=== PATIENT | female | born 1990 | race Two or more races ===

== ENCOUNTER 2024-05-05 09:19 | Outpatient (RCR) | payer MEDICARE, MEDICAID, SELFPAY | END 2024-05-29 23:59 | disposition home or self-care (01) | LOC: SCTC 09:19 | PROVIDERS: PCP Family Medicine; Referring Provider Radiology Therapeutic Radiology; Visit Provider Radiology Therapeutic Radiology | DX: C18.9 Malignant neoplasm of colon, unspecified (principal); Z92.21 Personal history of antineoplastic chemotherapy; Z92.3 Personal history of irradiation | CPT/HCPCS: 99213; G0463 ==

== ENCOUNTER → 2024-05-11 | Outpatient (CLI) | payer MEDICARE, MEDICAID, SELFPAY ==
[2024-05-08 12:39] LABS: HCG Qualitative,Urine Negative
--- NOTE | 2024-05-11 13:52 | XR_ITS ---
Examination: CT chest with intravenous contrast CT abdomen with intravenous contrast CT pelvis with intravenous contrast CT chest, without intravenous contrast. CT abdomen, without intravenous contrast. CT pelvis, without intravenous contrast. 2-D sagittal and coronal reconstructions. 3-D reconstructions. Date and time of exam:May 11, 2024 1516 hours INDICATIONS: Diagnosis malignant neoplasm ascending colon, restaging COMPARISON: The chest abdomen pelvis 01/15/2024 CTDI vol (mgy) 47.1 DLP (MGycm)4208 Technique: Multiple CT images, 3.0 mm slice thickness, obtained chest, abdomen, pelvis, with the high-resolution 64 slice scanner.., Pre and post 60 cc Isovue-370 Sagittal and coronal 2-D reconstructions are obtained. 3-D reconstructions Low dose protocols were performed. One or more of the following dose reduction techniques were used; automated exposure control, adjustment of the mA and/or KV according to patient size, use of iterative reconstruction technique. Findings: Enlarged right thyroid lobe 14 mm Isthmus thyroid nodule 8mm nodule left breast image 76, 6 mm nodule right breast image 76 No thoracic aortic aneurysm dilatation Pulmonary artery segments are not enlarged No paratracheal tracheobronchial or bronchopulmonary adenopathy Stable 4 mm pulmonary nodule right lower lobe Stable 3 mm pulmonary nodule right lower lobe No new pulmonary nodules No interval pneumonia or pulmonary edema or pleural disease Diffuse fatty infiltration throughout the liver Diffuse fatty infiltration throughout the liver, no focal liver or splenic lesions No gallstones Upper abdominal wall 10 cm hernia defect containing transverse colon, no incarcerated bowel Aorta normal size Stable 12 mm left lateral periaortic lymph node No hydronephrosis 20 mm fat-containing umbilical hernia Left lateral abdominal wall hernia defect containing colon but no incarcerated bowel, this defect measuring 4.5 cm Right lateral lower abdominal wall pelvic hernia defect 0.5 cm containing small bowel, no incarcerated bowel Left lateral pelvic wall hernia defect, 5.7 cm, containing colon but no incarcerated bowel No pelvic lymphadenopathy No pelvic mass Contracted urinary bladder Moderate osteopenia IMPRESSION: 14 mm isthmus thyroid nodule 8mm nodule left breast, 6 mm nodule right breast, recommend bilateral breast sonography follow-up Stable right lung pulmonary nodules, no new pulmonary nodules Multiple hernia defects as above containing bowel but no incarcerated bowel Again noted 12 mm left lateral periaortic lymph node, consider PET CT scan follow-up
== END | disposition home or self-care (01) ==
PROVIDERS: PCP Family Medicine; Referring Provider Internal Medicine Hematology & Oncology; Visit Provider Internal Medicine Hematology & Oncology
DX: E04.1 Nontoxic single thyroid nodule (principal); R91.8 Other nonspecific abnormal finding of lung field; K46.9 Unspecified abdominal hernia without obstruction or gangrene; C18.2 Malignant neoplasm of ascending colon; Z32.00 Encounter for pregnancy test, result unknown
CPT/HCPCS: 71270; 74178; 81025; A4649; Q9967

== ENCOUNTER → 2024-05-29 | Outpatient (CLI) | payer MEDICARE, MEDICAID, SELFPAY ==
--- NOTE | 2024-05-29 13:30 | XR_ITS ---
Examination: Breast ultrasound complete, bilateral Date and time of exam: May 29, 2024 1339 hours INDICATIONS: Left breast sonogram June 27, 2023 2:00 nodule 12 mm 10:00 nodule 13 mm Technique: Real-time grayscale ultrasonographic imaging bilateral breasts, including all 4 quadrants as well as nipple retroareolar and axillary regions. Findings: Sonographic images right breast No cystic or solid mass Sonographic images left breast 2:00 oval mass circumscribed 12 x 6 x 11 mm 10:00 oval mass circumscribed 14 x 6 x 10 mm IMPRESSION: BI-RADS Category 2: Benign findings
== END | disposition home or self-care (01) ==
LOC: CDIM 13:09
PROVIDERS: PCP Family Medicine; Referring Provider Internal Medicine Hematology & Oncology; Visit Provider Internal Medicine Hematology & Oncology
DX: N63.22 Unspecified lump in the left breast, upper inner quadrant (principal); N63.21 Unspecified lump in the left breast, upper outer quadrant; C18.2 Malignant neoplasm of ascending colon
CPT/HCPCS: 76641

== ENCOUNTER 2024-07-01 15:38 | Outpatient (RCR) | payer MEDICARE, MEDICAID, SELFPAY ==
[2024-06-30 16:36] LABS: Basophils # (Auto) 0.1 Thou/mm3 (0.0-0.2); Basophils % (Auto) 1 % (0-2.5); Eosinophils # (Auto) 0.5 Thou/mm3 (0.0-0.5); Eosinophils % (Auto) 4 % (0-10); Hematocrit 35.7 % (36.0-46.0); Immature Granulocytes % (Auto) 1 % (0-0); Immature Granulocytes Auto 0.05 Thou/mm3 (0.00-0.00); Lymphocytes % (Auto) 18 % (10-50); Mean Corpuscular HGB Conc 30.8 g/dl (31.0-37.0); Mean Corpuscular Hemoglobin 24.9 pg (25.0-35.0); Mean Corpuscular Volume 81 fL (80-100); Monocytes # (Auto) 0.7 Thou/mm3 (0.0-0.8); Monocytes % (Auto) 6 % (0-12); Neutrophils # (Auto) 7.6 Thou/mm3 (1.8-7.7); Neutrophils % (Auto) 71 % (37-80); Nucleated Red Blood Cell % 0 /100 WBC (0); Platelet Count 389 Thou/mm3 (140-440); RDW Standard Deviation 44.5 fL (36.4-46.3); Red Blood Count 4.41 Miln/mm3 (4.00-5.20); White Blood Count 10.8 Thou/mm3 (3.6-11.0)
[2024-06-30 16:44] LABS: Alanine Aminotransferase 23 U/L (10-49); Albumin, Serum 4.2 gm/dL (3.5-5.0); Albumin/Globulin Ratio 1.6 (1.2-2.2); Alkaline Phosphatase 75 U/L (46-116); Anion Gap 8 (7-16); Aspartate Amino Transferase 15 U/L (0-34); BUN/Creatinine Ratio 17 Ratio (12-20); Bilirubin,Total 0.3 mg/dL (0.3-1.2); Blood Urea Nitrogen 12 mg/dL (9-23); Calcium 9.2 mg/dL (8.3-10.6); Calcium (Corrected) 9.2 mg/dL (8.5-10.1); Carbon Dioxide 25.2 mMol/L (20.0-31.0); Chloride 106 mMol/L (98-107); Creatinine (Component) 0.7 mg/dL (0.6-1.3); Globulin 2.6 gm/dL (2.3-3.5); Glucose 83 mg/dL (74-106); Osmolality,Calculated 276 (275-295); Sodium 139 mMol/L (136-145); Total Protein 6.8 gm/dL (5.7-8.2); eGFR > 60 See Note
[2024-06-30 16:45] LABS: Carcinoembryonic Antigen < 0.5 ng/mL (0.0-5.0)
--- NOTE | 2024-07-06 00:44 | CTCFLWUP_ITS ---
Patient: SUHA MERCER : 1990 Page 12 of 13 FOLLOW UP NOTE DATE OF SERVICE: 07/01/2024 NAME: SUHA MERCER ACCOUNT: [id number] : 1990 AGE: 34 INTERVAL HISTORY: ONCOLOGY HISTORY: DIAGNOSIS: Malignant neoplasm of ascending colon [ICD10] C18.2 DATE OF DIAGNOSIS: STAGE/TNM: TREATMENT HISTORY: Care?Plan Start?Date Cycle Day Intent mFOLFOX-6?-?5FU?400?+?2400?CIV,?LVR?400,?OXALIplat?85 12/09/2018 1 14 Curative?(adjuvant) VENOfer?200mg?IV?weekly 05/25/2019 1 7 Palliative FOLFIRI?+?CETUXimab 01/23/2021 1 14 Palliative Bevacizumab?5mg/kg 03/27/2021 1 28 Palliative Pembrolizumab?alone 11/28/2021 1 21 Palliative VENOfer?200mg?IV?wkly?for?10?weeks 07/25/2022 1 70 Palliative HISTORY OF PRESENT ILLNESS: Suha Bowens is a 34-year-old ENG speaking female with following history. 06/26/2018: Patient had a exploratory laparotomy and small bowel resection with bypass jejunum to ileum for what appears to be small bowel perforation. 09/04/2018: Patient was readmitted to [facility] for abdominal wall abscess as well as intra-abdominal abscess. She was treated with IV antibiotics. 09/05/2018: Colonoscopy was performed. At 75 cm a tubular adenoma with severe dysplasia and small foci probably representing intramucosal carcinoma was found. 09/21/2018: Pathology report? 09/21/2018: [facility] CDx study? 11/12/2018: CT scan of the chest abdomen pelvis?11 mm oval mass in the lateral left breast. 11/15/2018: PET CT scan? 12/09/2018? 07/20/2019: Patient completed 6 cycles of FOLFOX 6 chemotherapy.. 03/10/2019?04/20/2019: Patient had 5040 cGy radiation to the pelvis. 07/21/2019: Patient also completed 2 g of Venofer infusion. 08/10/2019: CT scan of the chest, abdomen and pelvis with contrast? 09/23/2019: ultrasound of the left breast? 11/03/2019: Patient had a left breast mass biopsied. Pathology? 12/23/2019: Bilateral breast MRI? 05/18/2020: Left breast diagnostic mammogram? 06/07/2020: PET CT scan? 06/21/2020: Ultrasound of the left breast? 07/11/2020: CT scan of the chest abdomen and pelvis with IV contrast? 10/20/2020: CEA 8.0. 11/28/2020: CT scan of the chest abdomen and pelvis with IV contrast? 12/01/2020: PET CT scan? 12/22/2020: CT-guided biopsy of the soft tissue mass of left lateral lower abdomen? 01/23/2021?05/08/2021: Ms. Mercer was treated with FOLFIRI she received 2 doses of Erbitux which she was not able to tolerate due to severe rash. Erbitux was discontinued. Bevacizumab was added to her chemo regimen. FOLFIRI was discontinued due to severe nausea in spite of multiple antiemetic agents 01/20/2021: CEA 11.8. 01/26/2021: Neotype analysis colorectal profile? 02/17/2021: CEA 6.5. 03/17/2021: CEA 12.4. 04/19/2021: PET CT scan? 04/24/2021: CEA 4.5. 05/05/2021: CEA 4.1. 06/05/2021: CEA 3.5. 06/07/2021?07/03/2021: Ms. Mercer received 2880 cGy radiation therapy to the left abdomen. 07/18/2021: CEA 6.2. 08/28/2021: PET/CT scan? 10/12/2021: CT scan of the chest abdomen and pelvis with IV contrast? 02/12/2022: Ms. Mercer was seen at [facility] [address] emergency room because of abdominal pain for a few hours duration. She had CT scan of the abdomen and pelvis with out oral and with IV contrast which did not show any abdominal mass. It showed a large supraumbilical hernia. 11/13/2022: CT scan of the chest abdomen and pelvis with IV contrast 09/26/2023: Pembrolizumab was held due to diarrhea. Patient was having 5 loose stools a day for about 3 months. Patient was started on prednisone. Diarrhea promptly resolved. 10/03/2023:: CT scan of the chest abdomen pelvis with IV contrast 01/15/2024: CT scan of the chest abdomen and pelvis with and without contrast 01/21/2024: CEA 0.7. OTHER MEDICAL HISTORY/CONDITIONS: FAMILY HISTORY: SOCIAL HISTORY: [employer] HISTORY: MEDICATIONS: 1. HYDROcodone-acetaminophen - 10-300 mg 1 tab twice a day Medications Last Reconciled by Alisha Crews MA on 07/01/2024 ALLERGIES: vancomycin HCl REVIEW OF SYSTEMS: A complete 14-point review of systems was performed and is negative except as noted in interval history. PHYSICAL EXAMINATION: VITAL SIGNS: Temperature?98, B/P?148/91, Oxygen?Saturation?100% Weight?370?lbs (Change?since?06/30/24:?-1.8?lbs) PAIN: 0 - No pain ECOG Performance Status: 1 - Symptomatic; ambulatory; restricted in strenuous activity GENERAL APPEARANCE: Appears well, in no apparent distress, appropriately interactive. HEENT: Normocephalic, no temporal wasting, normal conjunctiva, no scleral icterus, normal hearing, lips without lesions, neck normal range of motion. CARDIOVASCULAR: Not assessed. PULMONARY: Normal respiratory effort, no respiratory distress or use of accessory muscles, speaking in full sentences, no tachypnea. EXTREMITIES: No pedal edema or cyanosis. SKIN: Normal skin appearance. NEUROLOGIC: Alert and oriented x4. PSHYCHIATRIC: Appropriate affect, mood normal, behavior normal, intact thought and speech. LABORATORY DATA: I have personally reviewed and interpreted each of the patient?s relevant lab tests, abnormal findings are below: Date 01/21/24 06/30/24 ??WHITE?BLOOD?COUNT?(Thou/mm3) ? 10.8 ??RED?BLOOD?COUNT?(Miln/mm3) ? 4.41 ??HEMOGLOBIN?(gm/dl) ? 11.0?L ??HEMATOCRIT?(%) ? 35.7?L ??PLATELET?COUNT?(Thou/mm3) ? 389 ??NEUTROPHILS?%,?AUTO?(%) ? 71 ??LYMPH?%,?AUTO?(%) ? 18 ??NEUTROPHILS,?AUTO?(Thou/mm3) ? 7.6 ??GLUCOSE,RANDOM?(mg/dL) 105 83 ??BLOOD?UREA?NITROGEN?(mg/dL) 9 12 ??CREATININE?(mg/dL) 0.60 0.70 ??SODIUM?(mmol/L) 139 139 ??POTASSIUM?(mmol/L) 4.0 4.0 ??CHLORIDE?(mmol/L) 109?H 106 ??CrCl?(CandG)?(ml/min) 224.22 185.92 ??AST/SGOT?(Unit/L) 20 15 ??ALT/SGPT?(Unit/L) 31 23 ??ALKALINE?PHOSPHATASE?(Unit/L) 81 75 ??BILIRUBIN,?TOTAL?(mg/dL) 0.2?L 0.3 ??PROTEIN?TOTAL?(gm/dl) 6.3 6.8 ??ALBUMIN,?SERUM?(gm/dl) 3.9 4.2 ??GLOBULIN?(gm/dl) 2.4 2.6 ??ALBUMIN/GLOBULIN?RATIO 1.6 1.6 ??CALCIUM,?SERUM?(mg/dL) 8.7 9.2 ??CALCIUM?SERUM?(CORRECTED)?(mg/dL) 8.8 9.2 ??CEA?(O*)?(ng/ml) ? <?0.5 ASSESSMENT/PLAN: 1. The patient is clinically doing well without any complaints. 2. CT scans did not show any evidence of recurrence at this point. Her CEA is 0.7. 3. Ms. Mercer was started on prednisone due to persistent diarrhea of 3 months duration. 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 4. Ms. 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 Diarrhea slowly resolved. Pembrolizumab discontinued. 5. CT scan of the chest abdomen and pelvis with contrast done on 10/03/2023 showed multiple thyroid nodules, stable subcentimeter pulmonary nodules and decrease in the size of the left lateral periaortic lymph node as documented above. No interval abdominal or pelvic adenopathy was noted. 6. Abdominal pain resolved after first dose of pembrolizumab. 7. CT scan of the abdomen with IV contrast done at [facility] [address] emergency room on 02/12/2022 did not show any abdominal mass. However it was not compared to the previous CT scans done here at [facility] on 10/12/2021.. 8. CT scans done on 10/12/2021 showed new interval 11 mm left lateral para-aortic lymph node as well as an enlarging soft tissue mass in the left lateral abdomen adjacent to the lower pole of the left kidney measuring 49 mm compared to 29 mm on November 28, 2020. 9. PET CT scan (08/28/2021 showed slight increase in the size of the left lower quadrant (paracolic gutter) mass as described above. 10. S/p radiation therapy to the left abdomen completed on 07/03/2021. 11. Ms. Mercer was treated with FOLFIRI from 01/23/2021 through 05/08/2021. Patient developed significant nausea and vomiting in spite of multiple antiemetics.. 12. She was not able to tolerate Erbitux. Bevacizumab added to her regimen after discontinuing Erbitux. 13. CT-guided biopsy of the left lateral lower abdominal mass was positive for metastatic adenocarcinoma. The immunohistochemistry stains are unusual for: Primary adenocarcinoma. The pathologist is sending the sample for cancer ID study to [facility]. 14. Intermittent abdominal pain. 15. PET CT scan done on 12/01/2020 showed a large 4 cm hypermetabolic soft tissue mass in the left paracolic gutter just below the lower pole of the left kidney as well as a level 2 node along with the anterior deep margin of the sternocleidomastoid muscle on the left side. 16. Patient completed adjuvant FOLFOX 6 chemotherapy. 17. History of stage IIIb, K-saeed wild-type, BRAF mutated, high tumor mutational burden, colon cancer status post surgery. Mismatch repair protein expression normal. No clinical evidence of recurrence 18. History of small bowel perforation as described above. 19. Obesity Chemotherapy has been held 05/29/2024 ultrasound of the breast shows benign findings 05/11/2024 CT chest abdomen pelvis showed thyroid nodule and 12 mm left periaortic lymph node and advised to follow-up with PET scan. There was a nodule seen in the breast which on ultrasound is cyst ORDERS: CBC CMP Ching for recurrence PET CT scan RETURN TO CLINIC: 4 weeks BILLING AND COMPLIANCE: I reviewed external records from providers outside my specialty as summarized above. I spent a total of 50 minutes on this patient?s care on the day of their visit excluding time spent related to any billed procedures. This time includes time spent with the patient as well as time spent documenting in the medical record, reviewing patients records and tests, obtaining history, placing orders, communicating with other healthcare professionals, counseling the patient, family or caregiver, and/or care coordination for the diagnoses above. Electronically Signed by: {Object.Sanct_ID*PnP.NameFL@M}, {Object.Sanct_ID*PnP.Suffix@U} D: {Object.Sanct_Date} T: {Object.Sanct_Time} CC: PCP: Zechariah Tamayo Referring: Noah Mathur This document was completed utilizing speech recognition software. Grammatical errors, random word insertions, pronoun errors, and incomplete sentences are an occasional consequence of this system due to software limitations, ambient noise, and hardware issues. Any formal questions or concerns about the content, text or information contained within the body of this dictation should be directly addressed to the provider for clarification.
== END 2024-07-27 23:59 | disposition home or self-care (01) ==
LOC: SCTC 15:38
PROVIDERS: PCP Family Medicine; Referring Provider Internal Medicine Hematology & Oncology; Visit Provider Internal Medicine Hematology & Oncology
DX: C18.9 Malignant neoplasm of colon, unspecified (principal); C79.89 Secondary malignant neoplasm of other specified sites; E04.2 Nontoxic multinodular goiter; R91.8 Other nonspecific abnormal finding of lung field; Z92.21 Personal history of antineoplastic chemotherapy; E66.9 Obesity, unspecified; Z68.43 Body mass index [BMI] 50.0-59.9, adult
CPT/HCPCS: 36591; 80053; 82378; 85025; 99212; A4216; J1642; G0463

== ENCOUNTER → 2024-07-21 | Outpatient (CLI) | payer MEDICARE, MEDICAID, SELFPAY ==
--- NOTE | 2024-07-21 15:00 | XR_ITS ---
Examination: Breast ultrasound complete, bilateral Date and time of exam: July 21, 2024 at 1509 hours INDICATIONS: Mammogram October 29, 2022 10 mm oval mass upper outer left breast Technique: Real-time grayscale ultrasonographic imaging bilateral breasts, including all 4 quadrants as well as nipple retroareolar and axillary regions. Findings: Sonographic images right breast No cystic or solid mass Sonographic images left breast 2:00 nodule lobular margins 11 x 9 mm 10:00 oval mass lobular margins 12 x 11 mm IMPRESSION: BI-RADS Category 3: Probably benign findings Continued 6 month left breast sonogram follow-up is needed to document stability of 2:00 and 10:00 nodules left breast
== END | disposition home or self-care (01) ==
PROVIDERS: Referring Provider Internal Medicine Hematology & Oncology; Visit Provider Internal Medicine Hematology & Oncology
DX: N63.22 Unspecified lump in the left breast, upper inner quadrant (principal); N63.21 Unspecified lump in the left breast, upper outer quadrant
CPT/HCPCS: 76641

== ENCOUNTER 2024-08-04 09:22 | Outpatient (RCR) | payer MEDICARE, MEDICAID, SELFPAY | END 2024-08-26 23:59 | disposition home or self-care (01) | LOC: SCTC 09:22 | PROVIDERS: PCP Family Medicine; Referring Provider Internal Medicine Hematology & Oncology; Visit Provider Internal Medicine Hematology & Oncology | DX: Z08 Encounter for follow-up examination after completed treatment for malignant neoplasm (principal); Z85.038 Personal history of other malignant neoplasm of large intestine; Z92.3 Personal history of irradiation; Z92.21 Personal history of antineoplastic chemotherapy | CPT/HCPCS: 36591; 99212; A4216; J1642; G0463 ==

== ENCOUNTER 2024-09-03 11:14 | Outpatient (RCR) | payer MEDICARE, MEDICAID, SELFPAY ==
--- NOTE | 2024-09-06 21:47 | CTCFLWUP_ITS ---
Patient: SUHA MERCER : 1990 Page 11 of 14 FOLLOW UP NOTE DATE OF SERVICE: 09/03/2024 NAME: SUHA MERCER ACCOUNT: [id number] : 1990 AGE: 34 INTERVAL HISTORY: Subjective: Chief Complaint Follow-up for colon cancer, discussion of Gennatera test results History of Present Illness Suha Bowens, a patient with a history of colon cancer and multiple hernias, presents for follow-up. She has a history of bowel rupture and colon surgery, which resulted in a prolonged open wound. The patient reports no current symptoms or complaints related to her previous colon cancer. She mentions having a lot and lot of hernias inside, but does not describe any associated symptoms or discomfort. There is no indication of recurrence of her cancer, although it is noted that there is something around the kidneys, the nature of which is not specified. Suha discusses her surgical history, including a colon surgery following a ruptured bowel. She states, When they took out the piece of my colon, but they didn't close me up. I had the wound back for months. This suggests a complicated post-surgical course with delayed wound healing. The patient does not report any current issues with the lower part of her stomach, and upon examination, the area is described as very clean. There is no mention of infection, inflammation, or redness in the abdominal area. Medical History - Ruptured bowel - Colon cancer, no recurrence Surgical History - Colon surgery for ruptured bowel, with prolonged open wound healing Social History - Family Structure: Patient has a mother and aunts Review of Systems Gastrointestinal: Negative for abdominal redness or inflammation. Objective: Physical Examination Abdomen: Lower part of the belly appears clean upon visual inspection. Surgical scar noted from previous colon surgery. Laboratory, Imaging, and Diagnostic Test Results - Gennatera test: Not performed due to lack of sufficient tissue for testing ONCOLOGY HISTORY:?[facility] Oncology Hx? DIAGNOSIS: Malignant neoplasm of ascending colon [ICD10] C18.2 DATE OF DIAGNOSIS: STAGE/TNM: TREATMENT HISTORY: Care?Plan Start?Date Cycle Day Intent mFOLFOX-6?-?5FU?400?+?2400?CIV,?LVR?400,?OXALIplat?85 12/09/2018 1 14 Curative?(adjuvant) VENOfer?200mg?IV?weekly 05/25/2019 1 7 Palliative FOLFIRI?+?CETUXimab 01/23/2021 1 14 Palliative Bevacizumab?5mg/kg 03/27/2021 1 28 Palliative Pembrolizumab?alone 11/28/2021 1 21 Palliative VENOfer?200mg?IV?wkly?for?10?weeks 07/25/2022 1 70 Palliative HISTORY OF PRESENT ILLNESS: Suha Bowens is a 34-year-old ENG speaking female with following history. 06/26/2018: Patient had a exploratory laparotomy and small bowel resection with bypass jejunum to ileum for what appears to be small bowel perforation. 09/04/2018: Patient was readmitted to [facility] for abdominal wall abscess as well as intra-abdominal abscess. She was treated with IV antibiotics. 09/05/2018: Colonoscopy was performed. At 75 cm a tubular adenoma with severe dysplasia and small foci probably representing intramucosal carcinoma was found. 09/21/2018: Pathology report? 09/21/2018: [facility] CDx study? 11/12/2018: CT scan of the chest abdomen pelvis?11 mm oval mass in the lateral left breast. 11/15/2018: PET CT scan? 12/09/2018? 07/20/2019: Patient completed 6 cycles of FOLFOX 6 chemotherapy.. 03/10/2019?04/20/2019: Patient had 5040 cGy radiation to the pelvis. 07/21/2019: Patient also completed 2 g of Venofer infusion. 08/10/2019: CT scan of the chest, abdomen and pelvis with contrast? 09/23/2019: ultrasound of the left breast? 11/03/2019: Patient had a left breast mass biopsied. Pathology? 12/23/2019: Bilateral breast MRI? 05/18/2020: Left breast diagnostic mammogram? 06/07/2020: PET CT scan? 06/21/2020: Ultrasound of the left breast? 07/11/2020: CT scan of the chest abdomen and pelvis with IV contrast? 10/20/2020: CEA 8.0. 11/28/2020: CT scan of the chest abdomen and pelvis with IV contrast? 12/01/2020: PET CT scan? 12/22/2020: CT-guided biopsy of the soft tissue mass of left lateral lower abdomen? 01/23/2021?05/08/2021: Ms. Mercer was treated with FOLFIRI she received 2 doses of Erbitux which she was not able to tolerate due to severe rash. Erbitux was discontinued. Bevacizumab was added to her chemo regimen. FOLFIRI was discontinued due to severe nausea in spite of multiple antiemetic agents 01/20/2021: CEA 11.8. 01/26/2021: Neotype analysis colorectal profile? 02/17/2021: CEA 6.5. 03/17/2021: CEA 12.4. 04/19/2021: PET CT scan? 04/24/2021: CEA 4.5. 05/05/2021: CEA 4.1. 06/05/2021: CEA 3.5. 06/07/2021?07/03/2021: Ms. Mercer received 2880 cGy radiation therapy to the left abdomen. 07/18/2021: CEA 6.2. 08/28/2021: PET/CT scan? 10/12/2021: CT scan of the chest abdomen and pelvis with IV contrast? 02/12/2022: Ms. Mercer was seen at [facility] emergency room because of abdominal pain for a few hours duration. She had CT scan of the abdomen and pelvis with out oral and with IV contrast which did not show any abdominal mass. It showed a large supraumbilical hernia. 11/13/2022: CT scan of the chest abdomen and pelvis with IV contrast 09/26/2023: Pembrolizumab was held due to diarrhea. Patient was having 5 loose stools a day for about 3 months. Patient was started on prednisone. Diarrhea promptly resolved. 10/03/2023:: CT scan of the chest abdomen pelvis with IV contrast 01/15/2024: CT scan of the chest abdomen and pelvis with and without contrast 01/21/2024: CEA 0.7. OTHER MEDICAL HISTORY/CONDITIONS: FAMILY HISTORY: ?Clone Family Hx? SOCIAL HISTORY: INSURANCE DEFENSE PARALEGAL HISTORY: MEDICATIONS: 1. HYDROcodone-acetaminophen - 10-300 mg 1 tab twice a day 2. Ozempic - 0.25 mg or 0.5 mg (2 mg/3 mL) 0.5 mg weekly?Palabra Meds? Medications Last Reconciled by Alisha Crews MA on 08/04/2024 ALLERGIES: vancomycin HCl REVIEW OF SYSTEMS: A complete 14-point review of systems was performed and is negative except as noted in interval history. PHYSICAL EXAMINATION:?CloneBlock PE? VITAL SIGNS: Temperature?98.5, B/P?142/82, Oxygen?Saturation?100% Weight?360?lbs (Change?since?08/04/24:?-8?lbs) PAIN: 0 - No pain GENERAL APPEARANCE: Appears well, in no apparent distress, appropriately interactive. HEENT: Normocephalic, no temporal wasting, normal conjunctiva, no scleral icterus, normal hearing, lips without lesions, neck normal range of motion. CARDIOVASCULAR: Not assessed. PULMONARY: Normal respiratory effort, no respiratory distress or use of accessory muscles, speaking in full sentences, no tachypnea. EXTREMITIES: No pedal edema or cyanosis. SKIN: Normal skin appearance. NEUROLOGIC: Alert and oriented x4. PSHYCHIATRIC: Appropriate affect, mood normal, behavior normal, intact thought and speech. LABORATORY DATA: I have personally reviewed and interpreted each of the patient?s relevant lab tests, abnormal findings are below: Date 01/21/24 06/30/24 ??WHITE?BLOOD?COUNT?(Thou/mm3) 8.7 10.8 ??RED?BLOOD?COUNT?(Miln/mm3) 4.20 4.41 ??HEMOGLOBIN?(gm/dl) 10.9?L 11.0?L ??HEMATOCRIT?(%) 35.0?L 35.7?L ??PLATELET?COUNT?(Thou/mm3) 322 389 ??NEUTROPHILS?%,?AUTO?(%) 65 71 ??LYMPH?%,?AUTO?(%) 19 18 ??NEUTROPHILS,?AUTO?(Thou/mm3) 5.6 7.6 ??GLUCOSE,RANDOM?(mg/dL) ? 83 ??BLOOD?UREA?NITROGEN?(mg/dL) ? 12 ??CREATININE?(mg/dL) ? 0.70 ??SODIUM?(mmol/L) ? 139 ??POTASSIUM?(mmol/L) ? 4.0 ??CHLORIDE?(mmol/L) ? 106 ??CrCl?(CandG)?(ml/min) ? 185.92 ??AST/SGOT?(Unit/L) ? 15 ??ALT/SGPT?(Unit/L) ? 23 ??ALKALINE?PHOSPHATASE?(Unit/L) ? 75 ??BILIRUBIN,?TOTAL?(mg/dL) ? 0.3 ??PROTEIN?TOTAL?(gm/dl) ? 6.8 ??ALBUMIN,?SERUM?(gm/dl) ? 4.2 ??GLOBULIN?(gm/dl) ? 2.6 ??ALBUMIN/GLOBULIN?RATIO ? 1.6 ??CALCIUM,?SERUM?(mg/dL) ? 9.2 ??CALCIUM?SERUM?(CORRECTED)?(mg/dL) ? 9.2 ??CEA?(O*)?(ng/ml) ? <?0.5 ASSESSMENT/PLAN:?Oz Mathur Assessment/Plan? The patient is clinically doing well without any complaints. CT scans did not show any evidence of recurrence at this point. Her CEA is 0.7. Ms. Mercer was started on prednisone due to persistent diarrhea of 3 months duration. 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 Ms. 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 Diarrhea slowly resolved. Pembrolizumab discontinued. CT scan of the chest abdomen and pelvis with contrast done on 10/03/2023 showed multiple thyroid nodules, stable subcentimeter pulmonary nodules and decrease in the size of the left lateral periaortic lymph node as documented above. No interval abdominal or pelvic adenopathy was noted. Abdominal pain resolved after first dose of pembrolizumab. CT scan of the abdomen with IV contrast done at [facility] emergency room on 02/12/2022 did not show any abdominal mass. However it was not compared to the previous CT scans done [facility] at [facility] on 10/12/2021.. CT scans done on 10/12/2021 showed new interval 11 mm left lateral para-aortic lymph node as well as an enlarging soft tissue mass in the left lateral abdomen adjacent to the lower pole of the left kidney measuring 49 mm compared to 29 mm on November 28, 2020. PET CT scan (08/28/2021 showed slight increase in the size of the left lower quadrant (paracolic gutter) mass as described above. S/p radiation therapy to the left abdomen completed on 07/03/2021. Ms. Mercer was treated with FOLFIRI from 01/23/2021 through 05/08/2021. Patient developed significant nausea and vomiting in spite of multiple antiemetics.. She was not able to tolerate Erbitux. Bevacizumab added to her regimen after discontinuing Erbitux. CT-guided biopsy of the left lateral lower abdominal mass was positive for metastatic adenocarcinoma. The immunohistochemistry stains are unusual for: Primary adenocarcinoma. The pathologist is sending the sample for cancer ID study to [facility]. Intermittent abdominal pain. PET CT scan done on 12/01/2020 showed a large 4 cm hypermetabolic soft tissue mass in the left paracolic gutter just below the lower pole of the left kidney as well as a level 2 node along with the anterior deep margin of the sternocleidomastoid muscle on the left side. Patient completed adjuvant FOLFOX 6 chemotherapy. History of stage IIIb, K-saeed wild-type, BRAF mutated, high tumor mutational burden, colon cancer status post surgery. Mismatch repair protein expression normal. No clinical evidence of recurrence History of small bowel perforation as described above. Assessment and Plan: Suha Bowens, female patient with history of colon cancer and multiple abdominal surgeries, presenting for follow-up. History of Colon Cancer Assessment: Patient has a history of colon cancer with surgical intervention. A Gennatera test was attempted but could not be performed due to insufficient tissue for testing. This was likely because no residual tumor tissue was found when the colon was surgically removed. Currently, there is no evidence of cancer recurrence based on available information. Plan: - Continue surveillance for cancer recurrence - Consider alternative methods for molecular testing if clinically indicated Post-surgical Complications Assessment: Patient reports a history of ruptured bowel and subsequent colon surgery. The surgical site was left open, resulting in a wound that persisted for months. Physical examination of the lower abdomen reveals a surgical scar consistent with this history. There are no current signs of infection or inflammation at the surgical site. Plan: - Monitor surgical site for any signs of complications - Assess for any functional limitations related to previous surgeries Multiple Abdominal Hernias Assessment: Patient is noted to have a lot of hernias inside. The exact location and severity of these hernias are not specified in the transcript. Further evaluation may be necessary to determine the impact on the patient's health and quality of life. Plan: - Evaluate extent and location of hernias - Assess for any associated symptoms or complications - Consider referral to general surgery for evaluation if clinically indicated Perirenal Abnormality Assessment: There is mention of something around the kidneys. The nature and clinical significance of this finding are not clear from the available information. Further investigation may be warranted to characterize this abnormality and determine its relevance to the patient's overall health. Plan: - Review previous imaging studies, if available - Consider additional imaging of the kidneys and perirenal area for further evaluation - Correlate findings with patient's symptoms and clinical presentation Chemotherapy has been held 05/29/2024 ultrasound of the breast shows benign findings 05/11/2024 CT chest abdomen pelvis showed thyroid nodule and 12 mm left periaortic lymph node and advised to follow-up with PET scan. There was a nodule seen in the breast which on ultrasound is cyst ORDERS: Order # Description [id number] Follow Up Appointment [id number] CBC + Comprehensive Metabolic Panel + CEA [id number] Lab Appointment [id number] Follow Up Appointment [id number] CBC + Comprehensive Metabolic Panel + CEA [id number] Lab Appointment [id number] Follow Up Appointment [id number] CBC + Comprehensive Metabolic Panel + CEA [id number] Lab Appointment [id number] Follow Up Appointment [id number] CBC + Comprehensive Metabolic Panel + CEA [id number] Lab Appointment [id number] Follow Up Appointment [id number] CBC + Comprehensive Metabolic Panel + CEA [id number] Lab Appointment [id number] Follow Up Appointment [id number] CBC + Comprehensive Metabolic Panel + CEA [id number] Lab Appointment [id number] Follow Up Appointment RETURN TO CLINIC: BILLING AND COMPLIANCE: I reviewed external records from providers outside my specialty as summarized above. I spent a total of 50 minutes on this patient?s care on the day of their visit excluding time spent related to any billed procedures. This time includes time spent with the patient as well as time spent documenting in the medical record, reviewing patients records and tests, obtaining history, placing orders, communicating with other healthcare professionals, counseling the patient, family or caregiver, and/or care coordination for the diagnoses above. Electronically Signed by: Noah Mathur MD T: 9:44 PM CC: PCP: Noah Mathur Referring: Noah Mathur This document was completed utilizing speech recognition software. Grammatical errors, random word insertions, pronoun errors, and incomplete sentences are an occasional consequence of this system due to software limitations, ambient noise, and hardware issues. Any formal questions or concerns about the content, text or information contained within the body of this dictation should be directly addressed to the provider for clarification.
== END 2024-09-26 23:59 | disposition home or self-care (01) ==
LOC: SCTC 11:14
PROVIDERS: PCP Family Medicine; Referring Provider Internal Medicine Hematology & Oncology; Visit Provider Internal Medicine Hematology & Oncology
DX: Z08 Encounter for follow-up examination after completed treatment for malignant neoplasm (principal); Z85.038 Personal history of other malignant neoplasm of large intestine; K46.9 Unspecified abdominal hernia without obstruction or gangrene; E04.1 Nontoxic single thyroid nodule; N60.09 Solitary cyst of unspecified breast
CPT/HCPCS: 99212; G0463

== ENCOUNTER 2025-02-01 14:31 | Outpatient (RCR) | payer MEDICARE, MEDICAID, SELFPAY ==
--- NOTE | 2025-01-27 10:52 | CTCFLWUP_ITS ---
[facility] [address] [place], [place] [address] FOLLOW-UP NOTE Date: 01/27/2025 MR#: [id number] Name: ELINA MATTHEWS : 1990 Dx: C18.9 Malignant neoplasm of colon, unspecified Identification. Patient with stage IV oligometastatic colon with left paracolic disease. Initial surgery 11/28/2018 with subsequent colon surgery 09/21/2018. KRAS wild- type BRAF mutated high tumor mutation burden initial stage IIIb. Had pelvic XRT 5040 cGy completed 04/16. Additional radiotherapy recurrence left abdomen 2080 cGy completed July 03, 2021. Various systemic agents initially under Dr. Baptiste's direction including FOLFOX 6 and pembrolizumab . Most recent PET scan 08/10/2024 left peritoneal mets disease. Patient is currently under surveillance. Additional biopsy for further treatment options are being considered according to patient. Still having moderate pain which is relieved by hydrocodone 10 twice daily as needed. Cures website checked. pain meds renewed. Electronically signed by: Jose Cochran M.D. 01/27/2025 10:49 AM
[2025-01-28 09:27] LABS: Basophils # (Auto) 0.1 Thou/mm3 (0.0-0.2); Basophils % (Auto) 1 % (0-2.5); Eosinophils # (Auto) 0.4 Thou/mm3 (0.0-0.5); Eosinophils % (Auto) 4 % (0-10); Hematocrit 35.3 % (36.0-46.0); Hemoglobin 11.0 g/dL (12.0-16.0); Immature Granulocytes Auto 0.03 Thou/mm3 (0.00-0.00); Lymphocytes # (Auto) 2.0 Thou/mm3 (1.0-4.8); Lymphocytes % (Auto) 20 % (10-50); Mean Corpuscular HGB Conc 31.2 g/dl (31.0-37.0); Mean Corpuscular Hemoglobin 24.6 pg (25.0-35.0); Mean Corpuscular Volume 79 fL (80-100); Monocytes # (Auto) 0.6 Thou/mm3 (0.0-0.8); Monocytes % (Auto) 6 % (0-12); Neutrophils # (Auto) 6.9 Thou/mm3 (1.8-7.7); Neutrophils % (Auto) 70 % (37-80); Nucleated Red Blood Cell # 0.00 Thou/mm3 (0.00-0.00); Nucleated Red Blood Cell % 0 /100 WBC (0); Platelet Count 382 Thou/mm3 (140-440); RDW Standard Deviation 47.1 fL (36.4-46.3); Red Blood Count 4.47 Miln/mm3 (4.00-5.20); White Blood Count 10.0 Thou/mm3 (3.6-11.0)
[2025-01-28 09:55] LABS: Alanine Aminotransferase 19 U/L (10-49); Albumin, Serum 4.2 gm/dL (3.5-5.0); Albumin/Globulin Ratio 1.8 (1.2-2.2); Alkaline Phosphatase 72 U/L (46-116); Anion Gap 8 (7-16); Aspartate Amino Transferase 13 U/L (0-34); BUN/Creatinine Ratio 12 Ratio (12-20); Bilirubin,Total 0.4 mg/dL (0.3-1.2); Blood Urea Nitrogen 7 mg/dL (9-23); Calcium 9.0 mg/dL (8.3-10.6); Calcium (Corrected) 9.0 mg/dL (8.5-10.1); Carbon Dioxide 25.7 mMol/L (20.0-31.0); Chloride 107 mMol/L (98-107); Creatinine (Component) 0.6 mg/dL (0.6-1.3); Globulin 2.4 gm/dL (2.3-3.5); Glucose 95 mg/dL (74-106); Osmolality,Calculated 279 (275-295); Potassium 4.1 mMol/L (3.4-5.1); Sodium 141 mMol/L (136-145); Total Protein 6.6 gm/dL (5.7-8.2); eGFR > 60 See Note
[2025-01-28 09:57] LABS: Carcinoembryonic Antigen < 0.5 ng/mL (0.0-5.0)
--- NOTE | 2025-02-01 16:09 | CTCFLWUP_ITS ---
Patient: SUHA MERCER : 1990 Page 11 of 14 FOLLOW UP NOTE DATE OF SERVICE: 02/01/2025 NAME: SUHA MERCER ACCOUNT: [id number] : 1990 AGE: 34 INTERVAL HISTORY: Subjective: Chief Complaint Follow-up for colon cancer, History of Present Illness Suha Bowens, a patient with a history of colon cancer and multiple hernias, presents for follow-up. She has a history of bowel rupture and colon surgery, which resulted in a prolonged open wound. The patient reports no current symptoms or complaints related to her previous colon cancer. She mentions having a lot and lot of hernias inside, but does not describe any associated symptoms or discomfort. There is no indication of recurrence of her cancer, although it is noted that there is something around the kidneys, the nature of which is not specified. Suha discusses her surgical history, including a colon surgery following a ruptured bowel. She states, When they took out the piece of my colon, but they didn't close me up. I had the wound back for months. This suggests a complicated post-surgical course with delayed wound healing. The patient does not report any current issues with the lower part of her stomach, and upon examination, the area is described as very clean. There is no mention of infection, inflammation, or redness in the abdominal area. Patient could not get her biopsy as was told her blood work was not good . Medical History - Ruptured bowel - Colon cancer, no recurrence Surgical History - Colon surgery for ruptured bowel, with prolonged open wound healing Social History - Family Structure: Patient has a mother and aunts Review of Systems Gastrointestinal: Negative for abdominal redness or inflammation. Objective: Physical Examination Abdomen: Lower part of the belly appears clean upon visual inspection. Surgical scar noted from previous colon surgery. Laboratory, Imaging, and Diagnostic Test Results - Gennatera test: Not performed due to lack of sufficient tissue for testing ONCOLOGY HISTORY: DIAGNOSIS: Malignant neoplasm of ascending colon [ICD10] C18.2 DATE OF DIAGNOSIS: STAGE/TNM: TREATMENT HISTORY: Care?Plan Start?Date Cycle Day Intent mFOLFOX-6?-?5FU?400?+?2400?CIV,?LVR?400,?OXALIplat?85 12/09/2018 1 14 Curative?(adjuvant) VENOfer?200mg?IV?weekly 05/25/2019 1 7 Palliative FOLFIRI?+?CETUXimab 01/23/2021 1 14 Palliative Bevacizumab?5mg/kg 03/27/2021 1 28 Palliative Pembrolizumab?alone 11/28/2021 1 21 Palliative VENOfer?200mg?IV?wkly?for?10?weeks 07/25/2022 1 70 Palliative HISTORY OF PRESENT ILLNESS: Suha Bowens is a 34-year-old ENG speaking female with following history. 06/26/2018: Patient had a exploratory laparotomy and small bowel resection with bypass jejunum to ileum for what appears to be small bowel perforation. 09/04/2018: Patient was readmitted to [facility] for abdominal wall abscess as well as intra-abdominal abscess. She was treated with IV antibiotics. 09/05/2018: Colonoscopy was performed. At 75 cm a tubular adenoma with severe dysplasia and small foci probably representing intramucosal carcinoma was found. 09/21/2018: Pathology report? 09/21/2018: [facility] [place] CDx study? 11/12/2018: CT scan of the chest abdomen pelvis?11 mm oval mass in the lateral left breast. 11/15/2018: PET CT scan? 12/09/2018? 07/20/2019: Patient completed 6 cycles of FOLFOX 6 chemotherapy.. 03/10/2019?04/20/2019: Patient had 5040 cGy radiation to the pelvis. 07/21/2019: Patient also completed 2 g of Venofer infusion. 08/10/2019: CT scan of the chest, abdomen and pelvis with contrast? 09/23/2019: ultrasound of the left breast? 11/03/2019: Patient had a left breast mass biopsied. Pathology? 12/23/2019: Bilateral breast MRI? 05/18/2020: Left breast diagnostic mammogram? 06/07/2020: PET CT scan? 06/21/2020: Ultrasound of the left breast? 07/11/2020: CT scan of the chest abdomen and pelvis with IV contrast? 10/20/2020: CEA 8.0. 11/28/2020: CT scan of the chest abdomen and pelvis with IV contrast? 12/01/2020: PET CT scan? 12/22/2020: CT-guided biopsy of the soft tissue mass of left lateral lower abdomen? 01/23/2021?05/08/2021: Ms. Mercer was treated with FOLFIRI she received 2 doses of Erbitux which she was not able to tolerate due to severe rash. Erbitux was discontinued. Bevacizumab was added to her chemo regimen. FOLFIRI was discontinued due to severe nausea in spite of multiple antiemetic agents 01/20/2021: CEA 11.8. 01/26/2021: Neotype analysis colorectal profile? 02/17/2021: CEA 6.5. 03/17/2021: CEA 12.4. 04/19/2021: PET CT scan? 04/24/2021: CEA 4.5. 05/05/2021: CEA 4.1. 06/05/2021: CEA 3.5. 06/07/2021?07/03/2021: Ms. Mercer received 2880 cGy radiation therapy to the left abdomen. 07/18/2021: CEA 6.2. 08/28/2021: PET/CT scan? 10/12/2021: CT scan of the chest abdomen and pelvis with IV contrast? 02/12/2022: Ms. Mercer was seen at [facility] emergency room because of abdominal pain for a few hours duration. She had CT scan of the abdomen and pelvis with out oral and with IV contrast which did not show any abdominal mass. It showed a large supraumbilical hernia. 11/13/2022: CT scan of the chest abdomen and pelvis with IV contrast 09/26/2023: Pembrolizumab was held due to diarrhea. Patient was having 5 loose stools a day for about 3 months. Patient was started on prednisone. Diarrhea promptly resolved. 10/03/2023:: CT scan of the chest abdomen pelvis with IV contrast 01/15/2024: CT scan of the chest abdomen and pelvis with and without contrast 01/21/2024: CEA 0.7. OTHER MEDICAL HISTORY/CONDITIONS: FAMILY HISTORY: SOCIAL HISTORY: INVENTORY AUDITOR HISTORY: MEDICATIONS: 1. HYDROcodone-acetaminophen - 10-300 mg 1 tab twice a day 2. Ozempic - 0.25 mg or 0.5 mg (2 mg/3 mL) 0.5 mg weekly Medications Last Reconciled by Alisha Moseley MD on 02/01/2025 ALLERGIES: vancomycin HCl REVIEW OF SYSTEMS: A complete 14-point review of systems was performed and is negative except as noted in interval history. PHYSICAL EXAMINATION: VITAL SIGNS: Temperature?99, B/P?131/84, Oxygen?Saturation?99% Weight?360?lbs (Change?since?01/28/25:?-0.6?lbs) PAIN: 0 - No pain ECOG Performance Status: 0 - Asymptomatic and fully active GENERAL APPEARANCE: Appears well, in no apparent distress, appropriately interactive. HEENT: Normocephalic, no temporal wasting, normal conjunctiva, no scleral icterus, normal hearing, lips without lesions, neck normal range of motion. CARDIOVASCULAR: Not assessed. PULMONARY: Normal respiratory effort, no respiratory distress or use of accessory muscles, speaking in full sentences, no tachypnea. EXTREMITIES: No pedal edema or cyanosis. SKIN: Normal skin appearance. NEUROLOGIC: Alert and oriented x4. PSHYCHIATRIC: Appropriate affect, mood normal, behavior normal, intact thought and speech. LABORATORY DATA: I have personally reviewed and interpreted each of the patient?s relevant lab tests, abnormal findings are below: Date 06/30/24 01/28/25 ??WHITE?BLOOD?COUNT?(Thou/mm3) 10.8 10.0 ??RED?BLOOD?COUNT?(Miln/mm3) 4.41 4.47 ??HEMOGLOBIN?(gm/dl) 11.0?L 11.0?L ??HEMATOCRIT?(%) 35.7?L 35.3?L ??PLATELET?COUNT?(Thou/mm3) 389 382 ??NEUTROPHILS?%,?AUTO?(%) 71 70 ??LYMPH?%,?AUTO?(%) 18 20 ??NEUTROPHILS,?AUTO?(Thou/mm3) 7.6 6.9 ??GLUCOSE,RANDOM?(mg/dL) ? 95 ??BLOOD?UREA?NITROGEN?(mg/dL) ? 7?L ??CREATININE?(mg/dL) ? 0.60 ??SODIUM?(mmol/L) ? 141 ??POTASSIUM?(mmol/L) ? 4.1 ??CHLORIDE?(mmol/L) ? 107 ??CrCl?(CandG)?(ml/min) ? 212.67 ??AST/SGOT?(Unit/L) ? 13 ??ALT/SGPT?(Unit/L) ? 19 ??ALKALINE?PHOSPHATASE?(Unit/L) ? 72 ??BILIRUBIN,?TOTAL?(mg/dL) ? 0.4 ??PROTEIN?TOTAL?(gm/dl) ? 6.6 ??ALBUMIN,?SERUM?(gm/dl) ? 4.2 ??GLOBULIN?(gm/dl) ? 2.4 ??ALBUMIN/GLOBULIN?RATIO ? 1.8 ??CALCIUM,?SERUM?(mg/dL) ? 9.0 ??CALCIUM?SERUM?(CORRECTED)?(mg/dL) ? 9.0 ??CEA?(O*)?(ng/ml) ? <?0.5 ASSESSMENT/PLAN: Colon cancer CT scans did not show any evidence of recurrence at this point. Her CEA is 0.7. Ms. Mercer was started on prednisone due to persistent diarrhea of 3 months duration. 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 Ms. 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 Diarrhea slowly resolved. Pembrolizumab discontinued. CT scan of the chest abdomen and pelvis with contrast done on 10/03/2023 showed multiple thyroid nodules, stable subcentimeter pulmonary nodules and decrease in the size of the left lateral periaortic lymph node as documented above. No interval abdominal or pelvic adenopathy was noted. Abdominal pain resolved after first dose of pembrolizumab. CT scan of the abdomen with IV contrast done at [facility] emergency room on 02/12/2022 did not show any abdominal mass. However it was not compared to the previous CT scans done [facility] at [facility] on 10/12/2021.. CT scans done on 10/12/2021 showed new interval 11 mm left lateral para-aortic lymph node as well as an enlarging soft tissue mass in the left lateral abdomen adjacent to the lower pole of the left kidney measuring 49 mm compared to 29 mm on November 28, 2020. PET CT scan (08/28/2021 showed slight increase in the size of the left lower quadrant (paracolic gutter) mass as described above. S/p radiation therapy to the left abdomen completed on 07/03/2021. Ms. Mercer was treated with FOLFIRI from 01/23/2021 through 05/08/2021. Patient developed significant nausea and vomiting in spite of multiple antiemetics.. She was not able to tolerate Erbitux. Bevacizumab added to her regimen after discontinuing Erbitux. CT-guided biopsy of the left lateral lower abdominal mass was positive for metastatic adenocarcinoma. The immunohistochemistry stains are unusual for: Primary adenocarcinoma. The pathologist is sending the sample for cancer ID study to [facility]. Intermittent abdominal pain. PET CT scan done on 12/01/2020 showed a large 4 cm hypermetabolic soft tissue mass in the left paracolic gutter just below the lower pole of the left kidney as well as a level 2 node along with the anterior deep margin of the sternocleidomastoid muscle on the left side. Patient completed adjuvant FOLFOX 6 chemotherapy. History of stage IIIb, K-saeed wild-type, BRAF mutated, high tumor mutational burden, colon cancer status post surgery. Mismatch repair protein expression normal. No clinical evidence of recurrence History of small bowel perforation as described above. A ana paula test was attempted but could not be performed due to insufficient tissue for testing. This was likely because no residual tumor tissue was found when the colon was surgically removed. Currently, there is concern for LN enlargement , scheduled for biopsy which was cance;;ed Will get ct scna to evaluate for recurrence and progression in size of LNS Breast nodule Will order bilateral mammogram RTC in 3-4 weeks Anemia Work up ordered ORDERS: Order # Description [id number] Uric Acid, Serum [id number] Ferritin + Vitamin B-12 + Folic Acid; Serum + Iron Panel + Lactate Dehydrogenase (LDH) [id number] MD Follow Up [id number] Scan + Chest + Abdomen and Pelvis + With W/O Contrast [id number] CEA + Comprehensive Metabolic Panel - 12 + CBC with Auto Diff RETURN TO CLINIC: I reviewed the diagnosis, prognosis, and recommended treatment/procedure options with the patient (and/or their legal access services representative), including the potential benefits, risks, side effects and alternative therapies. We also discussed the option of no treatment and the possibility of clinical trial participation, if applicable. All questions were addressed, and they demonstrated understanding. They provided informed consent to proceed with the proposed plan of care. BILLING AND COMPLIANCE: I reviewed external records from providers outside my specialty as summarized above. I spent a total of 50 minutes on this patient?s care on the day of their visit excluding time spent related to any billed procedures. This time includes time spent with the patient as well as time spent documenting in the medical record, reviewing patients records and tests, obtaining history, placing orders, communicating with other healthcare professionals, counseling the patient, family or caregiver, and/or care coordination for the diagnoses above. Electronically Signed by: Noah Mathur MD T: 4:06 PM CC: PCP: Zechariah Tamayo Referring: Zechariah Tamayo This document was completed utilizing speech recognition software. Grammatical errors, random word insertions, pronoun errors, and incomplete sentences are an occasional consequence of this system due to software limitations, ambient noise, and hardware issues. Any formal questions or concerns about the content, text or information contained within the body of this dictation should be directly addressed to the provider for clarification.
== END 2025-02-26 23:59 | disposition home or self-care (01) ==
LOC: SCTC 14:31
PROVIDERS: PCP Family Medicine; Referring Provider Family Medicine; Visit Provider Internal Medicine Hematology & Oncology
DX: C18.9 Malignant neoplasm of colon, unspecified (principal); C79.89 Secondary malignant neoplasm of other specified sites; Z92.3 Personal history of irradiation; C78.6 Secondary malignant neoplasm of retroperitoneum and peritoneum; G89.3 Neoplasm related pain (acute) (chronic); N63.21 Unspecified lump in the left breast, upper outer quadrant
CPT/HCPCS: 36591; 80053; 82378; 85025; 99212; 99213; A4216; J1642; G0463

== ENCOUNTER 2025-03-05 10:51 | Outpatient (RCR) | payer MEDICARE, MEDICAID, SELFPAY ==
[2025-03-03 09:26] LABS: Basophils # (Auto) 0.1 Thou/mm3 (0.0-0.2); Basophils % (Auto) 1 % (0-2.5); Eosinophils # (Auto) 0.4 Thou/mm3 (0.0-0.5); Eosinophils % (Auto) 4 % (0-10); Hematocrit 34.5 % (36.0-46.0); Hemoglobin 11.0 g/dL (12.0-16.0); Immature Granulocytes Auto 0.02 Thou/mm3 (0.00-0.00); Lymphocytes # (Auto) 1.7 Thou/mm3 (1.0-4.8); Lymphocytes % (Auto) 19 % (10-50); Mean Corpuscular HGB Conc 31.9 g/dl (31.0-37.0); Mean Corpuscular Hemoglobin 24.9 pg (25.0-35.0); Mean Corpuscular Volume 78 fL (80-100); Monocytes # (Auto) 0.6 Thou/mm3 (0.0-0.8); Monocytes % (Auto) 7 % (0-12); Neutrophils # (Auto) 6.3 Thou/mm3 (1.8-7.7); Neutrophils % (Auto) 70 % (37-80); Nucleated Red Blood Cell # 0.00 Thou/mm3 (0.00-0.00); Nucleated Red Blood Cell % 0 /100 WBC (0); Platelet Count 366 Thou/mm3 (140-440); RDW Standard Deviation 47.6 fL (36.4-46.3); Red Blood Count 4.42 Miln/mm3 (4.00-5.20); White Blood Count 9.0 Thou/mm3 (3.6-11.0)
[2025-03-03 09:41] LABS: Folate 11.54 ng/mL (>5.38); Uric Acid 5.0 mg/dL (3.1-7.8); Vitamin B12 443 pg/mL (211-911)
[2025-03-03 09:42] LABS: Carcinoembryonic Antigen < 0.5 ng/mL (0.0-5.0)
[2025-03-03 09:47] LABS: Alanine Aminotransferase 15 U/L (10-49); Albumin, Serum 4.4 gm/dL (3.5-5.0); Albumin/Globulin Ratio 2.1 (1.2-2.2); Alkaline Phosphatase 67 U/L (46-116); Anion Gap 9 (7-16); Aspartate Amino Transferase 14 U/L (0-34); BUN/Creatinine Ratio 10 Ratio (12-20); Bilirubin,Total 0.6 mg/dL (0.3-1.2); Blood Urea Nitrogen 6 mg/dL (9-23); Calcium 8.8 mg/dL (8.3-10.6); Calcium (Corrected) 8.8 mg/dL (8.5-10.1); Carbon Dioxide 22.0 mMol/L (20.0-31.0); Chloride 109 mMol/L (98-107); Creatinine (Component) 0.6 mg/dL (0.6-1.3); Globulin 2.1 gm/dL (2.3-3.5); Glucose 92 mg/dL (74-106); LDH (Lactate Dehydrogenase) 158 U/L (120-246); Osmolality,Calculated 277 (275-295); Potassium 4.4 mMol/L (3.4-5.1); Sodium 140 mMol/L (136-145); Total Protein 6.5 gm/dL (5.7-8.2); eGFR > 60 See Note
[2025-03-03 09:48] LABS: Ferritin 28 ng/mL (7.3-270.7); Iron 54 mcg/dL (50-170); Percent Iron Saturation 18 % (20-55); Total Iron Binding Capacity 296 mcg/dL (250-425); Unsaturated Iron Binding 242 (225-295)
[2025-03-05 12:22] LABS: Misc Send Out* See Sep Rpt
[2025-03-05 12:46] LABS: INR 1.0 (0.9-1.3); Partial Thromboplastin Time 31.8 Seconds (22.0-36.0); Prothrombin Time 10.5 Seconds (9.0-12.2)
[2025-03-05 12:55] LABS: Ferritin 24 ng/mL (7.3-270.7); Iron 26 mcg/dL (50-170); Percent Iron Saturation 8 % (20-55); Total Iron Binding Capacity 297 mcg/dL (250-425); Unsaturated Iron Binding 271 (225-295)
[2025-03-05 12:56] LABS: Folate 9.07 ng/mL (>5.38); Vitamin B12 376 pg/mL (211-911)
--- NOTE | 2025-03-09 18:33 | CTCFLWUP_ITS ---
Patient: SUHA MERCER : 1990 Page 11 of 13 FOLLOW UP NOTE DATE OF SERVICE: 03/04/2025 NAME: SUHA MERCER ACCOUNT: [id number] : 1990 AGE: 34 INTERVAL HISTORY: Subjective: Chief Complaint Follow-up for colon cancer, History of Present Illness Suha Bowens, a patient with a history of colon cancer and multiple hernias, presents for follow-up. She has a history of bowel rupture and colon surgery, which resulted in a prolonged open wound. No weight loss or appetite loss. No change in bowel habits . Medical History - Ruptured bowel - Colon cancer, no recurrence Surgical History - Colon surgery for ruptured bowel, with prolonged open wound healing Social History - Family Structure: Patient has a mother and aunts Review of Systems Gastrointestinal: Negative for abdominal redness or inflammation. Objective: Physical Examination Abdomen: Lower part of the belly appears clean upon visual inspection. Surgical scar noted from previous colon surgery. Laboratory, Imaging, and Diagnostic Test Results - Gennatera test: Not performed due to lack of sufficient tissue for testing ONCOLOGY HISTORY:?[facility] Oncology Hx? DIAGNOSIS: Malignant neoplasm of ascending colon [ICD10] C18.2 DATE OF DIAGNOSIS: STAGE/TNM: 06/26/2018 TREATMENT HISTORY: Care?Plan Start?Date Cycle Day Intent mFOLFOX-6?-?5FU?400?+?2400?CIV,?LVR?400,?OXALIplat?85 12/09/2018 1 14 Curative?(adjuvant) VENOfer?200mg?IV?weekly 05/25/2019 1 7 Palliative FOLFIRI?+?CETUXimab 01/23/2021 1 14 Palliative Bevacizumab?5mg/kg 03/27/2021 1 28 Palliative Pembrolizumab?alone 11/28/2021 1 21 Palliative VENOfer?200mg?IV?wkly?for?10?weeks 07/25/2022 1 70 Palliative HISTORY OF PRESENT ILLNESS: Suha Bowens is a 34-year-old ENG speaking female with following history. 06/26/2018: Patient had a exploratory laparotomy and small bowel resection with bypass jejunum to ileum for what appears to be small bowel perforation. 09/04/2018: Patient was readmitted to [facility] for abdominal wall abscess as well as intra-abdominal abscess. She was treated with IV antibiotics. 09/05/2018: Colonoscopy was performed. At 75 cm a tubular adenoma with severe dysplasia and small foci probably representing intramucosal carcinoma was found. 09/21/2018: Pathology report? 09/21/2018: [facility] CDx study? 11/12/2018: CT scan of the chest abdomen pelvis?11 mm oval mass in the lateral left breast. 11/15/2018: PET CT scan? 12/09/2018? 07/20/2019: Patient completed 6 cycles of FOLFOX 6 chemotherapy.. 03/10/2019?04/20/2019: Patient had 5040 cGy radiation to the pelvis. 07/21/2019: Patient also completed 2 g of Venofer infusion. 08/10/2019: CT scan of the chest, abdomen and pelvis with contrast? 09/23/2019: ultrasound of the left breast? 11/03/2019: Patient had a left breast mass biopsied. Pathology? 12/23/2019: Bilateral breast MRI? 05/18/2020: Left breast diagnostic mammogram? 06/07/2020: PET CT scan? 06/21/2020: Ultrasound of the left breast? 07/11/2020: CT scan of the chest abdomen and pelvis with IV contrast? 10/20/2020: CEA 8.0. 11/28/2020: CT scan of the chest abdomen and pelvis with IV contrast? 12/01/2020: PET CT scan? 12/22/2020: CT-guided biopsy of the soft tissue mass of left lateral lower abdomen? 01/23/2021?05/08/2021: Ms. Mercer was treated with FOLFIRI she received 2 doses of Erbitux which she was not able to tolerate due to severe rash. Erbitux was discontinued. Bevacizumab was added to her chemo regimen. FOLFIRI was discontinued due to severe nausea in spite of multiple antiemetic agents 01/20/2021: CEA 11.8. 01/26/2021: Neotype analysis colorectal profile? 02/17/2021: CEA 6.5. 03/17/2021: CEA 12.4. 04/19/2021: PET CT scan? 04/24/2021: CEA 4.5. 05/05/2021: CEA 4.1. 06/05/2021: CEA 3.5. 06/07/2021?07/03/2021: Ms. Mercer received 2880 cGy radiation therapy to the left abdomen. 07/18/2021: CEA 6.2. 08/28/2021: PET/CT scan? 10/12/2021: CT scan of the chest abdomen and pelvis with IV contrast? 02/12/2022: Ms. Mercer was seen at [facility] emergency room because of abdominal pain for a few hours duration. She had CT scan of the abdomen and pelvis with out oral and with IV contrast which did not show any abdominal mass. It showed a large supraumbilical hernia. 11/13/2022: CT scan of the chest abdomen and pelvis with IV contrast 09/26/2023: Pembrolizumab was held due to diarrhea. Patient was having 5 loose stools a day for about 3 months. Patient was started on prednisone. Diarrhea promptly resolved. 10/03/2023:: CT scan of the chest abdomen pelvis with IV contrast 01/15/2024: CT scan of the chest abdomen and pelvis with and without contrast 01/21/2024: CEA 0.7. OTHER MEDICAL HISTORY/CONDITIONS: FAMILY HISTORY: ?Clone Family Hx? SOCIAL HISTORY: LOAN REPRESENTATIVE HISTORY: MEDICATIONS: 1. HYDROcodone-acetaminophen - 10-300 mg 1 tab twice a day 2. tirzepatide - 2.5 mg/0.5 mL 1 As directed?[facility] Meds? Medications Last Reconciled by Alisha Moseley MD on 02/01/2025 ALLERGIES: vancomycin HCl REVIEW OF SYSTEMS: A complete 14-point review of systems was performed and is negative except as noted in interval history. PHYSICAL EXAMINATION:?CloneBlock PE? VITAL SIGNS: Temperature?99.9, B/P?143/80, Oxygen?Saturation?94% Weight?351?lbs (Change?since?03/03/25:?0?lbs) PAIN: 0 - No pain GENERAL APPEARANCE: Appears well, in no apparent distress, appropriately interactive. HEENT: Normocephalic, no temporal wasting, normal conjunctiva, no scleral icterus, normal hearing, lips without lesions, neck normal range of motion. CARDIOVASCULAR: Not assessed. PULMONARY: Normal respiratory effort, no respiratory distress or use of accessory muscles, speaking in full sentences, no tachypnea. EXTREMITIES: No pedal edema or cyanosis. SKIN: Normal skin appearance. NEUROLOGIC: Alert and oriented x4. PSHYCHIATRIC: Appropriate affect, mood normal, behavior normal, intact thought and speech. LABORATORY DATA: I have personally reviewed and interpreted each of the patient?s relevant lab tests, abnormal findings are below: Date 03/03/25 03/05/25 ??WHITE?BLOOD?COUNT?(Thou/mm3) 9.0 ? ??RED?BLOOD?COUNT?(Miln/mm3) 4.42 ? ??HEMOGLOBIN?(gm/dl) 11.0?L ? ??HEMATOCRIT?(%) 34.5?L ? ??PLATELET?COUNT?(Thou/mm3) 366 ? ??NEUTROPHILS?%,?AUTO?(%) 70 ? ??LYMPH?%,?AUTO?(%) 19 ? ??NEUTROPHILS,?AUTO?(Thou/mm3) 6.3 ? ??GLUCOSE,RANDOM?(mg/dL) 92 ? ??BLOOD?UREA?NITROGEN?(mg/dL) 6?L ? ??CREATININE?(mg/dL) 0.60 ? ??SODIUM?(mmol/L) 140 ? ??POTASSIUM?(mmol/L) 4.4 ? ??CHLORIDE?(mmol/L) 109?H ? ??CrCl?(CandG)?(ml/min) 209.04 ? ??AST/SGOT?(Unit/L) 14 ? ??ALT/SGPT?(Unit/L) 15 ? ??ALKALINE?PHOSPHATASE?(Unit/L) 67 ? ??BILIRUBIN,?TOTAL?(mg/dL) 0.6 ? ??PROTEIN?TOTAL?(gm/dl) 6.5 ? ??ALBUMIN,?SERUM?(gm/dl) 4.4 ? ??GLOBULIN?(gm/dl) 2.1?L ? ??ALBUMIN/GLOBULIN?RATIO 2.1 ? ??CALCIUM,?SERUM?(mg/dL) 8.8 ? ??CALCIUM?SERUM?(CORRECTED)?(mg/dL) 8.8 ? ??CEA?(O*)?(ng/ml) <?0.5 ? ??TOTAL?IRON?BINDING?CAP?(S*)?(mcg/dL) ? 297 ??UNBOUND?IBC?(mcg/dL) ? 271 ASSESSMENT/PLAN:?Oz Mathur Assessment/Plan? Colon cancer CT scans did not show any evidence of recurrence at this point. Her CEA is 0.7. Ms. Mercer was started on prednisone due to persistent diarrhea of 3 months duration. 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 Ms. 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 Diarrhea slowly resolved. Pembrolizumab discontinued. CT scan of the chest abdomen and pelvis with contrast done on 10/03/2023 showed multiple thyroid nodules, stable subcentimeter pulmonary nodules and decrease in the size of the left lateral periaortic lymph node as documented above. No interval abdominal or pelvic adenopathy was noted. Abdominal pain resolved after first dose of pembrolizumab. CT scan of the abdomen with IV contrast done at [facility] emergency room on 02/12/2022 did not show any abdominal mass. However it was not compared to the previous CT scans done here at [facility] on 10/12/2021.. CT scans done on 10/12/2021 showed new interval 11 mm left lateral para-aortic lymph node as well as an enlarging soft tissue mass in the left lateral abdomen adjacent to the lower pole of the left kidney measuring 49 mm compared to 29 mm on November 28, 2020. PET CT scan (08/28/2021 showed slight increase in the size of the left lower quadrant (paracolic gutter) mass as described above. S/p radiation therapy to the left abdomen completed on 07/03/2021. Ms. Mercer was treated with FOLFIRI from 01/23/2021 through 05/08/2021. Patient developed significant nausea and vomiting in spite of multiple antiemetics.. She was not able to tolerate Erbitux. Bevacizumab added to her regimen after discontinuing Erbitux. CT-guided biopsy of the left lateral lower abdominal mass was positive for metastatic adenocarcinoma. The immunohistochemistry stains are unusual for: Primary adenocarcinoma. Patient completed adjuvant FOLFOX 6 chemotherapy. K-saeed wild-type, BRAF mutated, high tumor mutational burden, colon cancer status post surgery. Mismatch repair protein expression normal. No clinical evidence of recurrence History of small bowel perforation as described above. A ana paula test was attempted but could not be performed due to insufficient tissue for testing. This was likely because no residual tumor tissue was found when the colon was surgically removed. Last pet was concerning Patient is yet to do biopsy as ntoed to have elevated PT/PTT Will repeat labs Not on blood thinner RTC with labs Breast noduler bilateral mammogram was ordered at last visit PT/PTT prolonged Labs ordered ORDERS: Order # Description [id number] PT, INR + PTT [id number] MD Follow Up 4 Week [id number] Ferritin + Vitamin B-12 + Folic Acid; Serum + Iron Panel [id number] SUHA - Antinuclear Antibody [id number] Lupus anticoagulant panel RETURN TO CLINIC: I reviewed the diagnosis, prognosis, and recommended treatment/procedure options with the patient (and/or their legal business representative), including the potential benefits, risks, side effects and alternative therapies. We also discussed the option of no treatment and the possibility of clinical trial participation, if applicable. All questions were addressed, and they demonstrated understanding. They provided informed consent to proceed with the proposed plan of care. BILLING AND COMPLIANCE: I reviewed external records from providers outside my specialty as summarized above. I spent a total of 50 minutes on this patient?s care on the day of their visit excluding time spent related to any billed procedures. This time includes time spent with the patient as well as time spent documenting in the medical record, reviewing patients records and tests, obtaining history, placing orders, communicating with other healthcare professionals, counseling the patient, family or caregiver, and/or care coordination for the diagnoses above. Electronically Signed by: Noah Mathur MD T: 6:31 PM CC: PCP: Zechariah Tamayo Referring: Zechariah Tamayo This document was completed utilizing speech recognition software. Grammatical errors, random word insertions, pronoun errors, and incomplete sentences are an occasional consequence of this system due to software limitations, ambient noise, and hardware issues. Any formal questions or concerns about the content, text or information contained within the body of this dictation should be directly addressed to the provider for clarification.
== END 2025-03-28 23:59 | disposition home or self-care (01) ==
LOC: SCTC 10:51
PROVIDERS: PCP Family Medicine; Referring Provider Family Medicine; Visit Provider Internal Medicine Hematology & Oncology
DX: Z08 Encounter for follow-up examination after completed treatment for malignant neoplasm (principal); Z85.038 Personal history of other malignant neoplasm of large intestine; Z92.21 Personal history of antineoplastic chemotherapy; Z92.3 Personal history of irradiation; E04.1 Nontoxic single thyroid nodule; R91.8 Other nonspecific abnormal finding of lung field; R79.1 Abnormal coagulation profile
CPT/HCPCS: 36591; 80053; 82378; 82607; 82728; 82746; 83540; 83550; 83615; 84550; 85025; 85598; 85610; 85613; 85730; 86038; 86039; 99212; A4216; J1642; G0463

== ENCOUNTER → 2025-03-17 | Outpatient (CLI) | payer MEDICARE, MEDICAID, SELFPAY ==
[2025-03-17 09:21] LABS: HCG Qualitative,Urine Negative
--- NOTE | 2025-03-17 10:00 | XR_ITS ---
Examination: CT chest with intravenous contrast CT abdomen with intravenous contrast CT pelvis with intravenous contrast CT chest without intravenous contrast CT abdomen without intravenous contrast CT pelvis without intravenous contrast 2-D coronal and sagittal reconstructions Time of exam: March 17, 2025, 10:00 a.m., comparison CT chest abdomen pelvis May 11, 2024, CT chest abdomen pelvis January 15, 2024, CT chest abdomen pelvis October 03, 2023 INDICATIONS: Diagnosis malignant neoplasm of colon unspecified, restaging CTDI: vol (mGy) : 77.5 DLP: (mGycm): 4357 Technique: Multiple axial images of the chest, abdomen and pelvis with intravenous contrast, 3.0 mm slice thickness. Images obtained post intravenous injection Isovue 370 60 cc. 2-D sagittal and coronal reconstructions. Low dose protocols were performed. One or more of the following dose reduction techniques were used; automated exposure control, adjustment of the mA and/or KV according to patient size, use of iterative reconstruction technique. Findings: Bilateral thyroid nodules, the largest 3 cm right thyroid lobe No thoracic aortic aneurysmal dilatation Pulmonary artery segments are not enlarged, no pulmonary artery filling defects No paratracheal or tracheobronchial or bronchopulmonary adenopathy Stable right lung pulmonary nodules, no new pulmonary nodules No interval pneumonia or pulmonary edema, no interval pleural disease No interval liver or splenic lesions Upper abdominal wall 10 cm hernia defect again noted containing colon, no incarcerated bowel No gallstones No pancreatic mass Normal adrenal glands No hydronephrosis Aorta normal size Surgical clips left lateral abdomen at the site of in the left abdomen on the CT exam November 28, 2020, the mass no longer identified 20 mm fat-containing umbilical hernia Again noted lower abdominal wall hernia defect containing colon and small bowel Contracted urinary bladder Moderate osteopenia Stable 12 mm left lateral para-aortic lymph node, no interval abdominal or pelvic lymphadenopathy IMPRESSION: Bilateral thyroid nodules No interval mediastinal lymphadenopathy Stable right lung pulmonary nodules Stable 12 mm left lateral periaortic lymph node No interval abdominal or pelvic lymphadenopathy
== END | disposition home or self-care (01) ==
PROVIDERS: PCP Family Medicine; Referring Provider Internal Medicine Hematology & Oncology; Visit Provider Internal Medicine Hematology & Oncology
DX: E04.2 Nontoxic multinodular goiter (principal); R91.8 Other nonspecific abnormal finding of lung field; C18.2 Malignant neoplasm of ascending colon; C18.9 Malignant neoplasm of colon, unspecified; Z32.00 Encounter for pregnancy test, result unknown
CPT/HCPCS: 71270; 74178; 81025; A4649; Q9967

== ENCOUNTER → 2025-04-13 | Outpatient (CLI) | payer MEDICARE, MEDICAID, SELFPAY ==
[2025-04-13 13:29] LABS: INR 1.0 (0.9-1.3); Partial Thromboplastin Time 28.8 Seconds (22.0-36.0); Prothrombin Time 10.2 Seconds (9.0-12.2)
== END | disposition home or self-care (01) ==
PROVIDERS: PCP Family Medicine; Referring Provider Internal Medicine Hematology & Oncology; Visit Provider Internal Medicine Hematology & Oncology
DX: C18.2 Malignant neoplasm of ascending colon (principal)
CPT/HCPCS: 36415; 85610; 85730

== ENCOUNTER 2025-04-20 14:34 | Outpatient (RCR) | payer MEDICARE, MEDICAID, SELFPAY ==
--- NOTE | 2025-04-13 10:46 | CTCFLWUP_ITS ---
Patient: SUHA MERCER : 1990 Page 11 of 13 FOLLOW UP NOTE DATE OF SERVICE: 04/13/2025 NAME: SUHA MERCER ACCOUNT: [id number] : 1990 AGE: 34 INTERVAL HISTORY: Summary --patient is here to follow up on colon cancer and iron deficiency . patient have no bruise . Patient is doing well. She is feeling more energy levels since starting Venofer. Plan is to repeat INR as patient's PTT is almost normal borderline. Naterra was ordered on the biopsy specimen. Will send the tissue for the main surgery and see if patient can get naterra results. No weight loss or appetite loss. No change in bowel habits . Medical History - Ruptured bowel - Colon cancer, no recurrence Surgical History - Colon surgery for ruptured bowel, with prolonged open wound healing Social History - Family Structure: Patient has a mother and aunts Review of Systems Gastrointestinal: Negative for abdominal redness or inflammation. Objective: Physical Examination Abdomen: Lower part of the belly appears clean upon visual inspection. Surgical scar noted from previous colon surgery. Laboratory, Imaging, and Diagnostic Test Results - Gennatera test: Not performed due to lack of sufficient tissue for testing ONCOLOGY HISTORY:?CloneBlock Oncology Hx? DIAGNOSIS: Malignant neoplasm of ascending colon [ICD10] C18.2 DATE OF DIAGNOSIS: STAGE/TNM: 06/26/2018 TREATMENT HISTORY: Care?Plan Start?Date Cycle Day Intent mFOLFOX-6?-?5FU?400?+?2400?CIV,?LVR?400,?OXALIplat?85 12/09/2018 1 14 Curative?(adjuvant) VENOfer?200mg?IV?weekly 05/25/2019 1 7 Palliative FOLFIRI?+?CETUXimab 01/23/2021 1 14 Palliative Bevacizumab?5mg/kg 03/27/2021 1 28 Palliative Pembrolizumab?alone 11/28/2021 1 21 Palliative VENOfer?200mg?IV?wkly?for?10?weeks 07/25/2022 1 70 Palliative VENOfer?200mg?IV?wkly?for?10?weeks 03/30/2025 1 70 Maintenance HISTORY OF PRESENT ILLNESS: Suha Bowens is a 34-year-old ENG speaking female with following history. 06/26/2018: Patient had a exploratory laparotomy and small bowel resection with bypass jejunum to ileum for what appears to be small bowel perforation. 09/04/2018: Patient was readmitted to [facility] for abdominal wall abscess as well as intra-abdominal abscess. She was treated with IV antibiotics. 09/05/2018: Colonoscopy was performed. At 75 cm a tubular adenoma with severe dysplasia and small foci probably representing intramucosal carcinoma was found. 09/21/2018: Pathology report? 09/21/2018: [facility] [place] CDx study? 11/12/2018: CT scan of the chest abdomen pelvis?11 mm oval mass in the lateral left breast. 11/15/2018: PET CT scan? 12/09/2018? 07/20/2019: Patient completed 6 cycles of FOLFOX 6 chemotherapy.. 03/10/2019?04/20/2019: Patient had 5040 cGy radiation to the pelvis. 07/21/2019: Patient also completed 2 g of Venofer infusion. 08/10/2019: CT scan of the chest, abdomen and pelvis with contrast? 09/23/2019: ultrasound of the left breast? 11/03/2019: Patient had a left breast mass biopsied. Pathology? 12/23/2019: Bilateral breast MRI? 05/18/2020: Left breast diagnostic mammogram? 06/07/2020: PET CT scan? 06/21/2020: Ultrasound of the left breast? 07/11/2020: CT scan of the chest abdomen and pelvis with IV contrast? 10/20/2020: CEA 8.0. 11/28/2020: CT scan of the chest abdomen and pelvis with IV contrast? 12/01/2020: PET CT scan? 12/22/2020: CT-guided biopsy of the soft tissue mass of left lateral lower abdomen? 01/23/2021?05/08/2021: Ms. Mercer was treated with FOLFIRI she received 2 doses of Erbitux which she was not able to tolerate due to severe rash. Erbitux was discontinued. Bevacizumab was added to her chemo regimen. FOLFIRI was discontinued due to severe nausea in spite of multiple antiemetic agents 01/20/2021: CEA 11.8. 01/26/2021: Neotype analysis colorectal profile? 02/17/2021: CEA 6.5. 03/17/2021: CEA 12.4. 04/19/2021: PET CT scan? 04/24/2021: CEA 4.5. 05/05/2021: CEA 4.1. 06/05/2021: CEA 3.5. 06/07/2021?07/03/2021: Ms. Mercer received 2880 cGy radiation therapy to the left abdomen. 07/18/2021: CEA 6.2. 08/28/2021: PET/CT scan? 10/12/2021: CT scan of the chest abdomen and pelvis with IV contrast? 02/12/2022: Ms. Mercer was seen at [facility] emergency room because of abdominal pain for a few hours duration. She had CT scan of the abdomen and pelvis with out oral and with IV contrast which did not show any abdominal mass. It showed a large supraumbilical hernia. 11/13/2022: CT scan of the chest abdomen and pelvis with IV contrast 09/26/2023: Pembrolizumab was held due to diarrhea. Patient was having 5 loose stools a day for about 3 months. Patient was started on prednisone. Diarrhea promptly resolved. 10/03/2023:: CT scan of the chest abdomen pelvis with IV contrast 01/15/2024: CT scan of the chest abdomen and pelvis with and without contrast 01/21/2024: CEA 0.7. OTHER MEDICAL HISTORY/CONDITIONS: FAMILY HISTORY: ?Clone Family Hx? SOCIAL HISTORY: [employer] HISTORY: MEDICATIONS: 1. HYDROcodone-acetaminophen - 10-300 mg 1 tab twice a day 2. tirzepatide - 2.5 mg/0.5 mL 1 As directed?Palabra Meds? Medications Last Reconciled by Alisha Moseley MD on 04/13/2025 ALLERGIES: vancomycin HCl REVIEW OF SYSTEMS: A complete 14-point review of systems was performed and is negative except as noted in interval history. PHYSICAL EXAMINATION:?CloneBlock PE? VITAL SIGNS: Temperature?98.9, B/P?160/100, Oxygen?Saturation?99% Weight?335?lbs (Change?since?04/06/25:?-14.4?lbs) PAIN: 0 - No pain GENERAL APPEARANCE: Appears well, in no apparent distress, appropriately interactive. HEENT: Normocephalic, no temporal wasting, normal conjunctiva, no scleral icterus, normal hearing, lips without lesions, neck normal range of motion. CARDIOVASCULAR: Not assessed. PULMONARY: Normal respiratory effort, no respiratory distress or use of accessory muscles, speaking in full sentences, no tachypnea. EXTREMITIES: No pedal edema or cyanosis. SKIN: Normal skin appearance. NEUROLOGIC: Alert and oriented x4. PSHYCHIATRIC: Appropriate affect, mood normal, behavior normal, intact thought and speech. LABORATORY DATA: I have personally reviewed and interpreted each of the patient?s relevant lab tests, abnormal findings are below: Date 03/03/25 03/05/25 ??WHITE?BLOOD?COUNT?(Thou/mm3) 9.0 ? ??RED?BLOOD?COUNT?(Miln/mm3) 4.42 ? ??HEMOGLOBIN?(gm/dl) 11.0?L ? ??HEMATOCRIT?(%) 34.5?L ? ??PLATELET?COUNT?(Thou/mm3) 366 ? ??NEUTROPHILS?%,?AUTO?(%) 70 ? ??LYMPH?%,?AUTO?(%) 19 ? ??NEUTROPHILS,?AUTO?(Thou/mm3) 6.3 ? ??GLUCOSE,RANDOM?(mg/dL) 92 ? ??BLOOD?UREA?NITROGEN?(mg/dL) 6?L ? ??CREATININE?(mg/dL) 0.60 ? ??SODIUM?(mmol/L) 140 ? ??POTASSIUM?(mmol/L) 4.4 ? ??CHLORIDE?(mmol/L) 109?H ? ??CrCl?(CandG)?(ml/min) 209.04 ? ??AST/SGOT?(Unit/L) 14 ? ??ALT/SGPT?(Unit/L) 15 ? ??ALKALINE?PHOSPHATASE?(Unit/L) 67 ? ??BILIRUBIN,?TOTAL?(mg/dL) 0.6 ? ??PROTEIN?TOTAL?(gm/dl) 6.5 ? ??ALBUMIN,?SERUM?(gm/dl) 4.4 ? ??GLOBULIN?(gm/dl) 2.1?L ? ??ALBUMIN/GLOBULIN?RATIO 2.1 ? ??CALCIUM,?SERUM?(mg/dL) 8.8 ? ??CALCIUM?SERUM?(CORRECTED)?(mg/dL) 8.8 ? ??CEA?(O*)?(ng/ml) <?0.5 ? ??TOTAL?IRON?BINDING?CAP?(S*)?(mcg/dL) ? 297 ??UNBOUND?IBC?(mcg/dL) ? 271 ASSESSMENT/PLAN:?Oz Mathur Assessment/Plan? Colon cancer CT scans did not show any evidence of recurrence at this point. Her CEA is 0.7. Ms. Mercer was started on prednisone due to persistent diarrhea of 3 months duration. 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 Ms. 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 Diarrhea slowly resolved. Pembrolizumab discontinued. CT scan of the chest abdomen and pelvis with contrast done on 10/03/2023 showed multiple thyroid nodules, stable subcentimeter pulmonary nodules and decrease in the size of the left lateral periaortic lymph node as documented above. No interval abdominal or pelvic adenopathy was noted. Abdominal pain resolved after first dose of pembrolizumab. CT scan of the abdomen with IV contrast done at [facility] emergency room on 02/12/2022 did not show any abdominal mass. However it was not compared to the previous CT scans done here at [facility] on 10/12/2021.. CT scans done on 10/12/2021 showed new interval 11 mm left lateral para-aortic lymph node as well as an enlarging soft tissue mass in the left lateral abdomen adjacent to the lower pole of the left kidney measuring 49 mm compared to 29 mm on November 28, 2020. PET CT scan (08/28/2021 showed slight increase in the size of the left lower quadrant (paracolic gutter) mass as described above. S/p radiation therapy to the left abdomen completed on 07/03/2021. Ms. Mercer was treated with FOLFIRI from 01/23/2021 through 05/08/2021. Patient developed significant nausea and vomiting in spite of multiple antiemetics.. She was not able to tolerate Erbitux. Bevacizumab added to her regimen after discontinuing Erbitux. CT-guided biopsy of the left lateral lower abdominal mass was positive for metastatic adenocarcinoma. The immunohistochemistry stains are unusual for: Primary adenocarcinoma. Patient completed adjuvant FOLFOX 6 chemotherapy. K-saeed wild-type, BRAF mutated, high tumor mutational burden, colon cancer status post surgery. Mismatch repair protein expression normal. No clinical evidence of recurrence History of small bowel perforation as described above. Will repeat Anatera testing with the new tissue Will repeat INR so biopsy can be completed RTC in 4 weeks with INR results Breast noduler bilateral mammogram was ordered at last visit PT/PTT mildly prolonged Labs ordered ORDERS: Order # Description [id number] PT, INR + PTT [id number] MD Follow Up 2 Months [id number] MD Follow Up 4 Week RETURN TO CLINIC: I reviewed the diagnosis, prognosis, and recommended treatment/procedure options with the patient (and/or their legal patient portal representative), including the potential benefits, risks, side effects and alternative therapies. We also discussed the option of no treatment and the possibility of clinical trial participation, if applicable. All questions were addressed, and they demonstrated understanding. They provided informed consent to proceed with the proposed plan of care. BILLING AND COMPLIANCE: I reviewed external records from providers outside my specialty as summarized above. I spent a total of 50 minutes on this patient?s care on the day of their visit excluding time spent related to any billed procedures. This time includes time spent with the patient as well as time spent documenting in the medical record, reviewing patients records and tests, obtaining history, placing orders, communicating with other healthcare professionals, counseling the patient, family or caregiver, and/or care coordination for the diagnoses above. Electronically Signed by: Noah Mathur MD T: 10:44 AM CC: PCP: Zechariah Tamayo Referring: Zechariah Tamayo This document was completed utilizing speech recognition software. Grammatical errors, random word insertions, pronoun errors, and incomplete sentences are an occasional consequence of this system due to software limitations, ambient noise, and hardware issues. Any formal questions or concerns about the content, text or information contained within the body of this dictation should be directly addressed to the provider for clarification.
== END 2025-04-28 23:59 | disposition home or self-care (01) ==
LOC: SCTC 14:34
PROVIDERS: PCP Family Medicine; Referring Provider Family Medicine; Visit Provider Internal Medicine Hematology & Oncology
DX: Z08 Encounter for follow-up examination after completed treatment for malignant neoplasm (principal); Z85.038 Personal history of other malignant neoplasm of large intestine; D50.9 Iron deficiency anemia, unspecified; E04.2 Nontoxic multinodular goiter; R91.8 Other nonspecific abnormal finding of lung field; Z92.3 Personal history of irradiation; Z92.21 Personal history of antineoplastic chemotherapy
CPT/HCPCS: 96365; 96375; 99212; A4216; J1642; J1756; J2919; J3490; J7040; G0463